=== PATIENT | female | born 1955 | race Caucasian/White ===

== ENCOUNTER 2017-12-05 19:56 | Emergency (ER) | payer OTHER ==
[~2017-12-05] VITALS: Ht 162.6 cm; Wt 70.0 kg
[~2017-12-05 19:56] MED LIST: AMIT-187; HAL2; KEPP250
[2017-12-05 23:31] LABS: HEMATOCRIT. 34.3 % (36.0-48.0); HEMOGLOBIN. 11.5 g/dL (12.0-16.0); MEAN CORPUSCULAR HEMOGLOBIN 30.2 pg (28.0-32.0); MEAN CORPUSCULAR VOLUME 90.3 fL (81.0-99.0); MEAN PLATELET VOLUME 9.4 fl (7.4-10.4); PLATELET 174 x1000/uL (130-400); RED CELL DISTRIBUTION WIDTH 13.3 % (11.6-14.6)
[2017-12-05 23:36] LABS: AMMONIA 54 uMol/L (<32)
[2017-12-05 23:40] LABS: CARBON DIOXIDE 27 mEq/L (21-32); CHLORIDE 106 mEq/L (98-107); ETHANOL BLOOD < 10 mg/dL
[2017-12-06] MEDS ORDERED: ACETAMINOPHEN 325MG TABLET PO ONE (01:00)
[2017-12-06] MEDS ORDERED: LIDOCAINE 5% PATCH TOP SCH (01:00)
[2017-12-06 02:22] VITALS: BP 118/72
[2017-12-06 03:12] LABS: PLATELET ESTIMATE NORMAL
== END 2017-12-06 02:26 | disposition home or self-care (01) ==
LOC: ER 20:14
DX: G89.29 Other chronic pain (principal); M79.1 Myalgia; T76.21XS Adult sexual abuse, suspected, sequela; K62.89 Other specified diseases of anus and rectum; G40.909 Epilepsy, unspecified, not intractable, without status epilepticus; M25.78 Osteophyte, vertebrae; M48.02 Spinal stenosis, cervical region; K74.60 Unspecified cirrhosis of liver; R01.1 Cardiac murmur, unspecified; F41.9 Anxiety disorder, unspecified; Z86.19 Personal history of other infectious and parasitic diseases; Z88.6 Allergy status to analgesic agent; J32.0 Chronic maxillary sinusitis; J32.2 Chronic ethmoidal sinusitis; Y08.89XA Assault by other specified means, initial encounter
CPT/HCPCS: 36415; 70450; 71045; 72125; 72170; 80053; 82140; 85025; 99285; G0482; Z7610

== ENCOUNTER 2017-12-06 07:26 | Emergency (ER) | payer OTHER ==
[~2017-12-06] VITALS: Ht 170.2 cm; Wt 59.0 kg
[2017-12-06 07:40] VITALS: BP 124/53
== END 2017-12-06 10:24 | disposition left against medical advice (07) ==
LOC: ER 07:38
DX: Z04.71 Encounter for examination and observation following alleged adult physical abuse (principal); Z53.21 Procedure and treatment not carried out due to patient leaving prior to being seen by health care provider

== ENCOUNTER 2017-12-09 23:15 | Emergency (ER) | payer OTHER ==
[~2017-12-09] VITALS: Ht 170.2 cm; Wt 55.0 kg
[2017-12-10 02:07] LABS: CLARITY URINE CLEAR (CLEAR); COLOR URINE YELLOW (YELLOW); KETONES URINE NEGATIVE (NEGATIVE); LEUKOCYTE ESTERASE URINE TRACE (NEGATIVE); NITRITE URINE NEGATIVE (NEGATIVE); OCCULT BLOOD URINE NEGATIVE (NEGATIVE); PROTEIN URINE NEGATIVE (NEGATIVE); SPECIFIC GRAVITY URINE 1.017 (1.005-1.030)
[2017-12-10 02:22] LABS: CHLORIDE 109 mEq/L (98-107)
[2017-12-10 02:30] LABS: CARBON DIOXIDE 27 mEq/L (21-32); ETHANOL BLOOD < 10 mg/dL
[2017-12-10 02:47] LABS: *AMPHETAMINES SCREEN URINE NEGATIVE (NEGATIVE); *BARBITURATES SCREEN URINE NEGATIVE (NEGATIVE); *BENZODIAZEPINES SCREEN URINE NEGATIVE (NEGATIVE); *COCAINE SCREEN URINE NEGATIVE (NEGATIVE); CANNABINOID URINE SCREEN NEGATIVE (NEGATIVE); METHADONE URINE SCREEN NEGATIVE (NEGATIVE); OPIATES URINE SCREEN NEGATIVE (NEGATIVE); PHENCYCLIDINE URINE SCREEN NEGATIVE (NEGATIVE)
[2017-12-10 03:55] LABS: BASOPHILS % 0.6 % (0.0-2.0); EOSINOPHILS % 0.2 % (0.0-5.0); HEMATOCRIT. 36.8 % (36.0-48.0); HEMOGLOBIN. 12.4 g/dL (12.0-16.0); LYMPHOCYTES % 21.5 % (20.0-50.0); MEAN CORPUSCULAR HEMOGLOBIN 30.5 pg (28.0-32.0); MEAN CORPUSCULAR VOLUME 90.8 fL (81.0-99.0); MEAN PLATELET VOLUME 9.5 fl (7.4-10.4); MONOCYTES % 11.3 % (2.0-8.0); NEUTROPHILS % 66.4 % (40.0-76.0); PLATELET 135 x1000/uL (130-400); RED BLOOD CELL COUNT 4.05 mill/uL (4.2-5.4); RED CELL DISTRIBUTION WIDTH 13.5 % (11.6-14.6)
[2017-12-10] MEDS ORDERED: PHENYTOIN SODIUM EXTENDED 100MG CAPSULE PO ONE (04:30)
[2017-12-10 06:00] VITALS: BP 115/69
== END 2017-12-10 10:07 | disposition home or self-care (01) ==
LOC: ER 23:15
DX: S09.90XA Unspecified injury of head, initial encounter (principal); G40.909 Epilepsy, unspecified, not intractable, without status epilepticus; I10 Essential (primary) hypertension; G89.29 Other chronic pain; M54.9 Dorsalgia, unspecified; F17.200 Nicotine dependence, unspecified, uncomplicated; Z88.6 Allergy status to analgesic agent; T74.21XA Adult sexual abuse, confirmed, initial encounter; Y93.89 Activity, other specified; Y92.89 Other specified places as the place of occurrence of the external cause; Y99.8 Other external cause status
CPT/HCPCS: 36415; 70450; 71045; 80053; 80185; 80305; 81001; 85025; 87086; 93005; 99285; G0482

== ENCOUNTER 2018-03-13 12:16 | Emergency (ER) | payer OTHER ==
[~2018-03-13] VITALS: Ht 157.5 cm; Wt 64.0 kg
[2018-03-13] MEDS ORDERED: ACETAMINOPHEN 325MG TABLET PO ONE (13:45)
[2018-03-13 15:12] VITALS: BP 126/71
== END 2018-03-13 15:56 | disposition left against medical advice (07) ==
LOC: ER 12:19
DX: S72.091A Other fracture of head and neck of right femur, initial encounter for closed fracture (principal); T76.21XA Adult sexual abuse, suspected, initial encounter; Y93.9 Activity, unspecified; J45.909 Unspecified asthma, uncomplicated; R56.9 Unspecified convulsions; F17.200 Nicotine dependence, unspecified, uncomplicated; F15.10 Other stimulant abuse, uncomplicated; G89.29 Other chronic pain; Z88.6 Allergy status to analgesic agent
CPT/HCPCS: 73521; 99284; Z7610

== ENCOUNTER 2018-09-08 21:44 | Emergency (ER) | payer OTHER ==
[~2018-09-08] VITALS: Ht 165.1 cm; Wt 68.0 kg
[~2018-09-08 21:44] MED LIST changes: -AMIT-187; +GABA-531 PO; -HAL2; -KEPP250; +PHEN100C12 PO; +QUET200T PO
[2018-09-09] MEDS ORDERED: PHENYTOIN SODIUM EXTENDED 100MG CAPSULE PO ONE
[2018-09-09] MEDS ORDERED: KETOROLAC 60MG/2ML VIAL IM ONE
[2018-09-09 00:41] LABS: BASOPHILS % 0.3 % (0.0-2.0); EOSINOPHILS % 0.2 % (0.0-5.0); HEMATOCRIT. 39.3 % (36.0-48.0); HEMOGLOBIN. 13.2 g/dL (12.0-16.0); LYMPHOCYTES % 27.5 % (20.0-50.0); MEAN CORPUSCULAR HEMOGLOBIN 31.1 pg (28.0-32.0); MEAN CORPUSCULAR VOLUME 92.3 fL (81.0-99.0); MEAN PLATELET VOLUME 9.9 fl (7.4-10.4); MONOCYTES % 13.4 % (2.0-8.0); NEUTROPHILS % 58.6 % (40.0-76.0); PLATELET 112 x1000/uL (130-400); RED BLOOD CELL COUNT 4.25 mill/uL (4.2-5.4)
[2018-09-09 00:47] LABS: CHLORIDE 108 mEq/L (98-107)
[2018-09-09 03:09] VITALS: BP 125/82
== END 2018-09-09 03:13 | disposition home or self-care (01) ==
LOC: ER 21:44
DX: S82.002A Unspecified fracture of left patella, initial encounter for closed fracture (principal); M25.572 Pain in left ankle and joints of left foot; W18.40XA Slipping, tripping and stumbling without falling, unspecified, initial encounter; R03.0 Elevated blood-pressure reading, without diagnosis of hypertension; Y93.89 Activity, other specified; Y92.480 Sidewalk as the place of occurrence of the external cause
CPT/HCPCS: 36415; 73562; 73610; 80053; 80185; 85025; 96372; 99285; J1885; L1830; Z7610

== ENCOUNTER 2018-09-26 21:07 | Emergency (ER) | payer OTHER ==
[~2018-09-26] VITALS: Ht 160 cm; Wt 68.0 kg
[2018-09-27] MEDS ORDERED: ACETAMINOPHEN 325MG TABLET PO ONE (02:00)
[2018-09-27] MEDS ORDERED: IBUPROFEN 800MG TABLET PO ONE (02:15)
[2018-09-27] MEDS ORDERED: HYDROCODONE/ACETAMINOPHEN 5/325MG TABLET PO ONE (02:15)
[2018-09-27 04:18] VITALS: BP 139/60
== END 2018-09-27 04:22 | disposition home or self-care (01) ==
LOC: ER 21:07
DX: S83.92XA Sprain of unspecified site of left knee, initial encounter (principal); S93.402A Sprain of unspecified ligament of left ankle, initial encounter; S93.602A Unspecified sprain of left foot, initial encounter; Y93.89 Activity, other specified; W01.0XXA Fall on same level from slipping, tripping and stumbling without subsequent striking against object, initial encounter; Y92.89 Other specified places as the place of occurrence of the external cause; R03.0 Elevated blood-pressure reading, without diagnosis of hypertension; Z87.81 Personal history of (healed) traumatic fracture; F17.210 Nicotine dependence, cigarettes, uncomplicated; F10.21 Alcohol dependence, in remission
CPT/HCPCS: 73560; 73610; 73630; 99284

== ENCOUNTER 2018-09-27 07:11 | Emergency (ER) | payer OTHER ==
[~2018-09-27] VITALS: Ht 170.2 cm; Wt 73.0 kg
[2018-09-27 08:33] LABS: CLARITY URINE CLEAR (CLEAR); COLOR URINE DARK YELLOW (YELLOW); KETONES URINE 1+ (NEGATIVE); LEUKOCYTE ESTERASE URINE TRACE (NEGATIVE); NITRITE URINE NEGATIVE (NEGATIVE); OCCULT BLOOD URINE NEGATIVE (NEGATIVE); PROTEIN URINE NEGATIVE (NEGATIVE)
[2018-09-27 10:04] LABS: BASOPHILS % 0.4 % (0.0-2.0); EOSINOPHILS % 0.1 % (0.0-5.0); HEMATOCRIT. 39.8 % (36.0-48.0); HEMOGLOBIN. 13.8 g/dL (12.0-16.0); LYMPHOCYTES % 32.1 % (20.0-50.0); MEAN CORPUSCULAR HEMOGLOBIN 31.7 pg (28.0-32.0); MEAN CORPUSCULAR VOLUME 91.3 fL (81.0-99.0); MONOCYTES % 10.6 % (2.0-8.0); NEUTROPHILS % 56.8 % (40.0-76.0); PLATELET 119 x1000/uL (130-400); RED BLOOD CELL COUNT 4.36 mill/uL (4.2-5.4); RED CELL DISTRIBUTION WIDTH 13.1 % (11.6-14.6)
[2018-09-27 10:13] LABS: CHLORIDE 108 mEq/L (98-107); ETHANOL BLOOD < 10 mg/dL
[2018-09-27 14:32] VITALS: BP 116/71
[2018-09-28 15:33] LABS: *BARBITURATES SCREEN URINE NEGATIVE (NEGATIVE); *BENZODIAZEPINES SCREEN URINE PRESUMTIVE POSITIVE (NEGATIVE); *COCAINE SCREEN URINE NEGATIVE (NEGATIVE); METHADONE URINE SCREEN NEGATIVE (NEGATIVE)
[2018-09-28 15:34] LABS: *AMPHETAMINES SCREEN URINE PRESUMTIVE POSITIVE (NEGATIVE); CANNABINOID URINE SCREEN NEGATIVE (NEGATIVE); OPIATES URINE SCREEN PRESUMTIVE POSITIVE (NEGATIVE); PHENCYCLIDINE URINE SCREEN NEGATIVE (NEGATIVE)
== END 2018-09-27 14:44 | disposition home or self-care (01) ==
LOC: ER 10:47
DX: M25.562 Pain in left knee (principal); N39.0 Urinary tract infection, site not specified; F17.210 Nicotine dependence, cigarettes, uncomplicated; F10.21 Alcohol dependence, in remission; R03.0 Elevated blood-pressure reading, without diagnosis of hypertension
CPT/HCPCS: 36415; 80048; 80305; 80307; 80329; 81003; 85025; 99284; G0482

== ENCOUNTER 2018-09-27 17:27 | Emergency (ER) | payer OTHER ==
[~2018-09-27] VITALS: Ht 157.5 cm; Wt 63.0 kg
[2018-09-27 17:30] VITALS: BP 124/67
== END 2018-09-27 23:29 | disposition left against medical advice (07) ==
LOC: ER 18:37
DX: Z53.21 Procedure and treatment not carried out due to patient leaving prior to being seen by health care provider (principal)

== ENCOUNTER 2019-11-12 11:57 | Emergency (ER) | payer MEDICARE, MEDICAID ==
[~2019-11-12] VITALS: Ht 167.6 cm; Wt 62.0 kg
[2019-11-12 12:01] VITALS: BP 120/50
== END 2019-11-12 13:09 | disposition left against medical advice (07) ==
LOC: ER 11:57
DX: M79.672 Pain in left foot (principal); Z53.21 Procedure and treatment not carried out due to patient leaving prior to being seen by health care provider

== ENCOUNTER 2019-12-01 08:24 | Emergency (ER) | payer MEDICARE, MEDICAID ==
[~2019-12-01] VITALS: Ht 160 cm; Wt 50.0 kg
[2019-12-01 08:29] VITALS: BP 131/76
[2019-12-01] MEDS ORDERED: KETOROLAC 30MG/ML VIAL IM ONE (09:30)
== END 2019-12-01 12:46 | disposition home or self-care (01) ==
LOC: ER 08:38
DX: S82.492A Other fracture of shaft of left fibula, initial encounter for closed fracture (principal); V78.4XXA Person boarding or alighting from bus injured in noncollision transport accident, initial encounter; Y93.89 Activity, other specified; Y92.410 Unspecified street and highway as the place of occurrence of the external cause
CPT/HCPCS: 29515; 73610; 73620; 96372; 99283; J1885

== ENCOUNTER 2019-12-01 16:46 | Emergency (ER) | payer MEDICARE, MEDICAID ==
[~2019-12-01] VITALS: Ht 167.6 cm; Wt 61.0 kg
[2019-12-02 06:19] VITALS: BP 129/64
== END 2019-12-02 09:00 | disposition home or self-care (01) ==
LOC: ER 16:46
DX: R10.9 Unspecified abdominal pain (principal)
CPT/HCPCS: 99283

== ENCOUNTER 2020-02-01 16:26 | Emergency (ER) | payer MEDICARE, MEDICAID ==
[~2020-02-01] VITALS: Ht 165.1 cm; Wt 57.0 kg
[2020-02-01 16:28] VITALS: BP 136/70
[2020-02-01] MEDS ORDERED: HYDROCODONE/ACETAMINOPHEN 5/325MG TABLET PO ONE (17:15)
== END 2020-02-01 18:05 | disposition home or self-care (01) ==
LOC: ER 16:26
DX: M25.562 Pain in left knee (principal); M25.561 Pain in right knee; G62.9 Polyneuropathy, unspecified; I95.9 Hypotension, unspecified; Z88.6 Allergy status to analgesic agent; Z79.899 Other long term (current) drug therapy; Z90.49 Acquired absence of other specified parts of digestive tract; Z98.890 Other specified postprocedural states; Z90.89 Acquired absence of other organs; Z96.649 Presence of unspecified artificial hip joint
CPT/HCPCS: 99283

== ENCOUNTER 2020-04-25 19:33 | Emergency (ER) | payer MEDICARE, MEDICAID ==
[~2020-04-25] VITALS: Ht 167.6 cm; Wt 63.0 kg
[2020-04-25] MEDS ORDERED: HYDROCODONE/ACETAMINOPHEN 5/325MG TABLET PO ONE (21:00)
[2020-04-25 21:14] VITALS: BP 133/77
== END 2020-04-25 21:35 | disposition home or self-care (01) ==
LOC: ER 19:33
DX: M79.672 Pain in left foot (principal); I10 Essential (primary) hypertension; Z90.49 Acquired absence of other specified parts of digestive tract; Z98.890 Other specified postprocedural states; Z96.649 Presence of unspecified artificial hip joint; Z79.899 Other long term (current) drug therapy; Z88.6 Allergy status to analgesic agent
CPT/HCPCS: 73620; 99283

== ENCOUNTER 2020-05-08 21:44 | Emergency (ER) | payer MEDICARE, MEDICAID ==
[~2020-05-08] VITALS: Ht 167.6 cm; Wt 68.0 kg
[2020-05-08] MEDS ORDERED: TRAMADOL 50MG TABLET PO ONE (22:30)
[2020-05-08 23:11] LABS: CLARITY URINE CLEAR (CLEAR); COLOR URINE YELLOW (YELLOW); KETONES URINE NEGATIVE (NEGATIVE); LEUKOCYTE ESTERASE URINE NEGATIVE (NEGATIVE); NITRITE URINE NEGATIVE (NEGATIVE); OCCULT BLOOD URINE NEGATIVE (NEGATIVE); PH URINE 5.5 (4.5-8.0); PROTEIN URINE NEGATIVE (NEGATIVE); SPECIFIC GRAVITY URINE 1.013 (1.005-1.030)
[2020-05-09 00:10] VITALS: BP 121/74
== END 2020-05-09 00:54 | disposition home or self-care (01) ==
LOC: ER 21:44
DX: M79.671 Pain in right foot (principal); R30.0 Dysuria; N89.8 Other specified noninflammatory disorders of vagina; Z04.41 Encounter for examination and observation following alleged adult rape; M25.562 Pain in left knee; I10 Essential (primary) hypertension; Z90.49 Acquired absence of other specified parts of digestive tract; Z98.890 Other specified postprocedural states; Z96.649 Presence of unspecified artificial hip joint; Z79.899 Other long term (current) drug therapy; Z88.6 Allergy status to analgesic agent
CPT/HCPCS: 73560; 73620; 81003; 99284

== ENCOUNTER 2020-05-15 19:29 | Emergency (ER) | payer MEDICARE, MEDICAID ==
[~2020-05-15] VITALS: Ht 167.6 cm; Wt 68.0 kg
[2020-05-15] MEDS ORDERED: TRAMADOL 50MG TABLET PO ONE (20:30)
[2020-05-15 21:09] VITALS: BP 114/69
[2020-05-15 22:05] LABS: BASOPHILS % 1.2 % (0.0-2.0); EOSINOPHILS % 0.6 % (0.0-5.0); HEMATOCRIT. 41.2 % (36.0-48.0); HEMOGLOBIN. 14.3 g/dL (12.0-16.0); LYMPHOCYTES % 26.2 % (20.0-50.0); MEAN CORPUSCULAR HEMOGLOBIN 31.4 pg (28.0-32.0); MEAN CORPUSCULAR VOLUME 90.8 fL (81.0-99.0); MEAN PLATELET VOLUME 9.4 fl (7.4-10.4); MONOCYTES % 13.4 % (2.0-8.0); NEUTROPHILS % 58.6 % (40.0-76.0); PLATELET 100 x1000/uL (130-400); RED BLOOD CELL COUNT 4.54 mill/uL (4.2-5.4); RED CELL DISTRIBUTION WIDTH 13.5 % (11.6-14.6)
[2020-05-15 22:08] LABS: CHLORIDE 110 mEq/L (98-107)
[2020-05-15 22:11] LABS: ETHANOL BLOOD < 10 mg/dL
[2020-05-15 23:53] LABS: *AMPHETAMINES SCREEN URINE PRESUMTIVE POSITIVE (NEGATIVE); *BARBITURATES SCREEN URINE NEGATIVE (NEGATIVE); *BENZODIAZEPINES SCREEN URINE NEGATIVE (NEGATIVE); *COCAINE SCREEN URINE NEGATIVE (NEGATIVE); METHADONE URINE SCREEN NEGATIVE (NEGATIVE)
[2020-05-15 23:54] LABS: CANNABINOID URINE SCREEN NEGATIVE (NEGATIVE); OPIATES URINE SCREEN NEGATIVE (NEGATIVE); PHENCYCLIDINE URINE SCREEN NEGATIVE (NEGATIVE)
[2020-05-16 00:35] LABS: CLARITY URINE CLOUDY (CLEAR); COLOR URINE YELLOW (YELLOW); PROTEIN URINE NEGATIVE (NEGATIVE)
[2020-05-16 00:36] LABS: KETONES URINE TRACE (NEGATIVE); LEUKOCYTE ESTERASE URINE NEGATIVE (NEGATIVE); NITRITE URINE NEGATIVE (NEGATIVE); OCCULT BLOOD URINE NEGATIVE (NEGATIVE)
== END 2020-05-16 08:15 | disposition home or self-care (01) ==
LOC: ER 19:29
DX: M25.571 Pain in right ankle and joints of right foot (principal); M25.551 Pain in right hip; R45.851 Suicidal ideations; R44.3 Hallucinations, unspecified; I10 Essential (primary) hypertension; Z86.73 Personal history of transient ischemic attack (TIA), and cerebral infarction without residual deficits; Z79.899 Other long term (current) drug therapy; Z88.6 Allergy status to analgesic agent
CPT/HCPCS: 36415; 73502; 73610; 80048; 80305; 80307; 80320; 80329; 81003; 85025; 99284; G0480

== ENCOUNTER 2020-05-24 00:01 | Emergency (ER) | payer MEDICARE, MEDICAID ==
[~2020-05-24] VITALS: Ht 170.2 cm; Wt 65.0 kg
[2020-05-24] MEDS ORDERED: KETOROLAC 30MG/ML VIAL IM ONE (01:00)
[2020-05-24 01:19] VITALS: BP 120/80
== END 2020-05-24 02:13 | disposition left against medical advice (07) ==
LOC: ER 00:01
DX: R07.0 Pain in throat (principal); T74.21XA Adult sexual abuse, confirmed, initial encounter; R45.1 Restlessness and agitation; Y04.8XXA Assault by other bodily force, initial encounter; Y93.89 Activity, other specified; F15.10 Other stimulant abuse, uncomplicated; F17.210 Nicotine dependence, cigarettes, uncomplicated; E03.9 Hypothyroidism, unspecified; G40.909 Epilepsy, unspecified, not intractable, without status epilepticus; K75.9 Inflammatory liver disease, unspecified; Z59.0 Homelessness; Y92.89 Other specified places as the place of occurrence of the external cause
CPT/HCPCS: 96372; 99283; J1885

== ENCOUNTER 2020-05-24 05:23 | Emergency (ER) | payer MEDICARE, MEDICAID ==
[~2020-05-24] VITALS: Ht 165.1 cm; Wt 65.0 kg
[2020-05-24 05:32] VITALS: BP 129/69
[2020-05-24] MEDS ORDERED: GABAPENTIN 100MG CAPSULE PO ONE (06:45)
[2020-05-24] MEDS ORDERED: PHENYTOIN SODIUM EXTENDED 100MG CAPSULE PO ONE (06:45)
== END 2020-05-24 09:16 | disposition home or self-care (01) ==
LOC: ER 05:23
DX: T74.21XA Adult sexual abuse, confirmed, initial encounter (principal); M54.2 Cervicalgia; M25.562 Pain in left knee; M25.572 Pain in left ankle and joints of left foot; Y04.8XXA Assault by other bodily force, initial encounter; Y93.89 Activity, other specified; Y92.89 Other specified places as the place of occurrence of the external cause; V78.4XXA Person boarding or alighting from bus injured in noncollision transport accident, initial encounter; Y92.488 Other paved roadways as the place of occurrence of the external cause; F17.210 Nicotine dependence, cigarettes, uncomplicated; F15.10 Other stimulant abuse, uncomplicated; G40.909 Epilepsy, unspecified, not intractable, without status epilepticus; Z76.0 Encounter for issue of repeat prescription; F31.9 Bipolar disorder, unspecified; K76.9 Liver disease, unspecified
CPT/HCPCS: 73562; 73610; 99284

== ENCOUNTER 2020-10-08 23:59 | Emergency (ER) | payer MEDICARE, MEDICAID ==
[~2020-10-08] VITALS: Ht 165.1 cm; Wt 64.0 kg
[2020-10-09 00:04] VITALS: BP 142/82
[2020-10-09] MEDS ORDERED: CYCLOBENZAPRINE 10MG TABLET PO ONE (01:15)
== END 2020-10-09 03:07 | disposition home or self-care (01) ==
LOC: ER 23:59
DX: S80.11XA Contusion of right lower leg, initial encounter (principal); W01.0XXA Fall on same level from slipping, tripping and stumbling without subsequent striking against object, initial encounter; Y93.89 Activity, other specified; Y92.89 Other specified places as the place of occurrence of the external cause; R03.0 Elevated blood-pressure reading, without diagnosis of hypertension; K76.9 Liver disease, unspecified; G40.909 Epilepsy, unspecified, not intractable, without status epilepticus; Z88.6 Allergy status to analgesic agent; Z88.8 Allergy status to other drugs, medicaments and biological substances; Z88.5 Allergy status to narcotic agent; Z79.899 Other long term (current) drug therapy
CPT/HCPCS: 73590; 73610; 73630; 99284